=== PATIENT | male | born 1950 | race Caucasian/White ===

== ENCOUNTER 2018-02-15 07:17 | Day surgery (SDC) | payer MEDICARE, BC ==
[2018-02-13 09:11] VITALS: BMI 24.4
[~2018-02-15 07:17] MED LIST: Bupivacaine HCl 0.5% PF (30 ml) Inj ONE; Lidocaine 2% MPF (5 ml) Inj ONE
[2018-02-15] MEDS ORDERED: Lactated Ringer's 1,000 ML IV ONE (08:10)
[2018-02-15] MEDS ORDERED: Propofol 10 mg/ml Inj (20 ML) ONE (08:12)
[2018-02-15] MEDS ORDERED: Midazolam 2 MG/2 ML VIAL ONE (08:12)
[2018-02-15] MEDS: ceFAZolin 1 gm in NS 2 GM/200 ML BAG IVPB ONE ×2 (08:25→08:45)
[2018-02-15] MEDS ORDERED: Morphine 4 MG/ML VIAL IVP PRN (09:02)
--- NOTE | 2018-02-15 09:03 | PCM.SURG1 ---
Surgeon's Initial Post Op Note - Surgeon's Notes Surgeon: Dr. Johnson DPM Polisher Apprentice: Dr. Goodman DPM PGy-2 Type of Anesthesia: IV Sedation, Local Anesthesia Administered By: Dr. Sifuentes Pre-Operative Diagnosis: left 2nd digit gangrene Operative Findings: see dication Post-Operative Diagnosis: same Operation Performed: left foot 2nd digit amputation Specimen/Specimens Removed: left foot 2nd digit Estimated Blood Loss: EBL {In ML}: 5 Blood Products Given: N/A Drains Used: No Drains Post-Op Condition: Good Date of Surgery/Procedure: 02/15/18 Time of Surgery/Procedure: 09:02
--- NOTE | 2018-02-15 09:33 | RAD ---
PROCEDURE: Left foot 02/15/2018 HISTORY: Left foot surgery COMPARISON: No prior study available for comparison FINDINGS: BONES: Postoperative amputation changes of the of the 1st and 2nd digits. There has been amputation from the level of the mid aspect proximal phalanx great toe and mid aspect proximal phalanx 2nd toe, the latter of which appears to be more recent based on what is felt to be small amount subcutaneous single adjacent soft tissues of the stump. The remaining osseous structures appear intact. No cortical destructive changes. 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 . Mild multi articular degenerative osteoarthritis. SOFT TISSUES: As above. Vascular calcifications are also noted. . OTHER FINDINGS: None. IMPRESSION: Postoperative amputation changes of the 1st and 2nd digits as detailed above.
[2018-02-15 10:20] VITALS: RESP 15
[2018-02-15 10:55] VITALS: PULSE 51
[2018-02-15 12:45] VITALS: BP 112/55; TEMP 97.8; O2SAT 100
--- NOTE | 2018-02-16 03:41 | OP ---
PROCEDURE DATE: 02/15/2018 PREOPERATIVE DIAGNOSIS: Left foot second digit gangrene. POSTOPERATIVE DIAGNOSIS: Left foot second digit gangrene OPERATION PERFORMED: Left foot second digit amputation. SURGEON: Salty Johnson DPM DRIER AND EVAPORATOR OPERATOR: Irma Goodman DPM, PGY-2 ANESTHESIA ADMINISTERED BY: Dr. Sifuentes. TYPE OF ANESTHESIA: IV sedation with local injection. INDICATIONS: The patient is a 67-year-old male with the above mentioned diagnosis. The patient has been treated by Dr. Johnson in his office on an outpatient basis, where he has failed multiple forms of conservative treatments. The patient seeks surgical intervention at this time. All risks, benefits, and possible complications of proposed procedure have been explained to the patient at length. The patient verbalized understanding and wishes to proceed. All questions were answered. No guarantees were given nor implied. N.p.o. status and consent were both signed before bringing the patient to the operating room. DESCRIPTION OF PROCEDURE: The patient was brought into the operating room and placed on the operating room table in a supine position. No pneumatic ankle tourniquet was applied to the patient. Once IV sedation was achieved, a local injection consisting of 15 mL of 1:1 mixture of 2% lidocaine plain and 0.5% Marcaine plain was given in a local block fashion to the patient's left foot. Once local anesthesia was achieved, the left foot was then prepped and draped in a usual sterile manner and the procedure began. PROCEDURE 1: Left foot second digit amputation. Attention was directed to the left foot second digit where a racquet-type incision was made around the digit with the use of a #15 blade. Care was taken to identify and retract all vital neurovascular structures. All bleeders were cauterized and ligated as necessary. At this time, a #15 blade was used to free all soft tissue and the left second digit was removed from the field and sent for pathology. Next utilizing a sagittal saw, the base of the proximal phalanx was then resected and passed off to operative field and sent for pathology. Next, a Rongeur was used to smooth all the edges. The surgical site was then irrigated with copious amount of normal sterile saline. Using a bone cutter, a portion of the resected phalanx was passed off the table and sent for pathology. Surgical site was then irrigated with copious amount of normal sterile saline. The surgical site was then reapproximated with #3-0 nylon. Postoperative bandages included Xeroform, 4 x 4s, Kerlix, and a light [facility]. POSTOPERATIVE CONDITION: The patient tolerated the anesthesia and the procedure well with no apparent complications or complaints. The patient was escorted from the OR to the PACU with vital signs stable and neurovascular status intact. The patient will follow up with Dr. Johnson in his office on an outpatient basis. Irma Goodman DPM Salty Johnson DPM MTDNico
== END 2018-02-15 12:32 | disposition home or self-care (01) ==
LOC: C.SDS 07:17
PROVIDERS: ATTEND Podiatrist
DX: I96 Gangrene, not elsewhere classified (principal); Z89.511 Acquired absence of right leg below knee; Z98.84 Bariatric surgery status